=== PATIENT | female | born 1980 | race Caucasian/White ===

== ENCOUNTER → 2019-05-09 02:50 | Observation (INO) ==
[2019-05-09 01:49] LABS: Amphetamine Screen,Urine Negative ng/mL (Cutoff=1000); Barbiturate Screen,Urine Negative ng/mL (Cutoff=200); Benzodiazepines Screen,Urine Negative ng/mL (Cutoff=200); Cannabinoid Screen,Urine Negative ng/mL (Cutoff = 50); Cocaine Screen,Urine Negative ng/mL (Cutoff= 300); Opiate Screen,Urine Negative ng/mL (Cutoff=300); Phencyclidine Screen,Urine Negative ng/mL (Cutoff=25)
== END | disposition home or self-care (01) ==
LOC: 1NENULAB
PROVIDERS: ADMIT Obstetrics & Gynecology; ATTEND Obstetrics & Gynecology

== ENCOUNTER → 2019-07-16 20:39 | Observation (INO) ==
[2019-07-16 20:06] LABS: Bilirubin,Urine Negative (Negative); Blood,Urine Negative (Negative); Clarity,Urine Cloudy (Clear); Color,Urine Yellow (Yellow); Glucose,Urine (UA) Normal (Normal); Ketones,Urine Negative (Negative); Leukocyte Esterase,Urine Large (Negative); Nitrite,Urine Positive (Negative); Protein,Urine Trace mg/dL (Neg-Trace); Specific Gravity,Urine 1.019 (1.010-1.025); Urobilinogen,Urine Normal (Normal)
[2019-07-16 20:08] LABS: Bacteria,Urine Many per hpf (None-Few); Hyaline Casts,Urine Few per lpf (None-Few); RBC,Urine 0-3 per hpf (0-3); Squamous Epithelial Cell,Urine Many per lpf (None-Few); WBC,Urine 50-100 per hpf (0-3)
[2019-07-16 20:17] LABS: Amphetamine Screen,Urine Negative ng/mL (Cutoff=1000); Barbiturate Screen,Urine Negative ng/mL (Cutoff=200); Benzodiazepines Screen,Urine Negative ng/mL (Cutoff=200); Cannabinoid Screen,Urine Negative ng/mL (Cutoff = 50); Cocaine Screen,Urine Negative ng/mL (Cutoff= 300); Opiate Screen,Urine Negative ng/mL (Cutoff=300); Phencyclidine Screen,Urine Negative ng/mL (Cutoff=25)
[~2019-07-16 20:39] MED LIST: NIFEdipine 10 MG CAPSULE PO ONE
== END | disposition home or self-care (01) ==
LOC: 1NENULAB
PROVIDERS: ADMIT Registered Nurse; ATTEND Registered Nurse

== ENCOUNTER 2019-08-16 15:17 | Inpatient (IN) ==
[~2019-08-16 15:17] MED LIST changes: +CeFAZolin 2,000 MG/50 ML BAG IVPB ONE; +Famotidine 20 MG/2 ML VIAL IVP ONE; +Metoclopramide 10 MG/2 ML VIAL IVP ONE; -NIFEdipine 10 MG CAPSULE PO ONE; +Ringers Solution, Lactated 1,000 ML IVC ONE; +Ringers Solution, Lactated 1,000 ML ONE
[2019-08-16] MEDS ORDERED: *HR* Oxytocin 10 UNIT/ML VIAL IM ONE ×2 (15:43→17:21)
[2019-08-16] MEDS ORDERED: *HR* Phenylephrine 10 MG/ML VIAL ONE (15:43)
[2019-08-16] MEDS ORDERED: *HR* Propofol 200 MG/20 ML VIAL IVP ONE (15:46)
[2019-08-16] MEDS ORDERED: *HR* Succinylcholine 200 MG/10 ML VIAL IVP ONE (15:46)
[2019-08-16 15:56] LABS: Amphetamine Screen,Urine Negative ng/mL (Cutoff=1000); Barbiturate Screen,Urine Negative ng/mL (Cutoff=200); Benzodiazepines Screen,Urine Negative ng/mL (Cutoff=200); Cannabinoid Screen,Urine Negative ng/mL (Cutoff = 50); Cocaine Screen,Urine Negative ng/mL (Cutoff= 300); Opiate Screen,Urine Negative ng/mL (Cutoff=300); Phencyclidine Screen,Urine Negative ng/mL (Cutoff=25)
[2019-08-16 15:57] LABS: Basophils % 0.3 %; Eosinophils # 0.1 K/mcL (0.0-0.6); Eosinophils % 0.5 %; Hematocrit 28.1 % (35.3-44.9); Hemoglobin 7.9 g/dL (11.5-15.4); Immature Granulocytes % 1.3 % (0-4); Lymphocytes # 1.6 K/mcL (0.6-4.6); Lymphocytes % 12.4 %; Mean Corpuscular HGB Conc 28.1 g/dL (31.6-35.5); Mean Corpuscular Hemoglobin 17.6 pg (28.0-33.3); Mean Corpuscular Volume 62.6 fL (83.0-100.0); Monocytes # 0.7 K/mcL (0.0-1.3); Monocytes % 5.6 %; Neutrophils # 10.2 K/mcL (1.6-8.9); Nucleated Red Blood Cells 1.1 /100 WBC (0); Platelet Count 186 K/mcL (140-400); Red Blood Count 4.49 M/mcL (3.82-4.97); Red Cell Distribution Width 21.2 % (11.5-14.5); Segmented Neutrophils % 79.9 %; White Blood Count 12.8 K/mcL (4.3-11.1)
[2019-08-16 16:22] LABS: Anisocytosis 1+ (Not Present)
[2019-08-16 16:23] LABS: Hypochromasia Present (Not Present); Macrocytosis Present (Not Present); Platelet Estimate Normal (Normal); Poikilocytosis 1+ (Not Present); Polychromasia 1+ (Not Present)
[2019-08-16 16:24] LABS: Large Platelets Present (Not Present)
[2019-08-16] MEDS ORDERED: 0.9 % Sodium Chloride 1,000 ML ONE (16:33)
[2019-08-16] MEDS ORDERED: EPHEDrine 50 MG/ML VIAL ONE (16:52)
[2019-08-16] MEDS ORDERED: *HR* Morphine Sulfate/PF 10 MG/10 ML AMPUL ONE (16:53)
[2019-08-16] MEDS ORDERED: *HR* FentaNYL (PF) 100 MCG/2 ML VIAL ONE (16:55)
[2019-08-16] MEDS ORDERED: Famotidine 20 MG/2 ML VIAL ONE (16:55)
[2019-08-16] MEDS ORDERED: Metoclopramide 10 MG/2 ML VIAL ONE (16:55)
[2019-08-16] MEDS ORDERED: *HR* HYDROmorphone (PF) 1 MG/ML SYRINGE IVP PRN (17:34)
[2019-08-16] MEDS ORDERED: Acetaminophen IV 1,000 MG/100 ML INFUS..BTL IVPB ONE (17:34)
[2019-08-16] MEDS ORDERED: *HR* Promethazine 25 MG/ML VIAL IVP PRN (17:34)
[2019-08-16] MEDS ORDERED: Ondansetron 4 MG/2 ML VIAL IVP PRN ×2 (17:34→20:52)
[2019-08-16] MEDS ORDERED: Oxytocin 20 units/ LR 1000 mL 20 UNIT/1,000 ML BAG IVC SCH ×2 (20:52)
[2019-08-16] MEDS ORDERED: *HR* OxyCODONE Immed Rel 5 MG TABLET PO PRN (20:52)
[2019-08-16] MEDS ORDERED: Sennosides 8.6 MG TABLET PO PRN (20:52)
[2019-08-16] MEDS ORDERED: Naloxone 0.4 MG/ML INJ IVP PRN (20:52)
[2019-08-16] MEDS ORDERED: Acetaminophen 325 MG TABLET PO PRN (20:52)
[2019-08-16] MEDS ORDERED: Simethicone 80 MG TAB.CHEW PO PRN (20:52)
[2019-08-16] MEDS ORDERED: Measles/Mumps/Rubella Vacc 0.5 ML VIAL SQ ONE (20:52)
[2019-08-16] MEDS ORDERED: Metoclopramide 10 MG/2 ML VIAL IVP PRN (20:52)
[2019-08-16] MEDS: Ibuprofen 600 MG TABLET PO PRN (21:04)
[2019-08-17] MEDS: Ibuprofen 600 MG TABLET PO PRN ×2 (04:19→17:15)
[2019-08-17 06:00] LABS: Hematocrit 25.9 % (35.3-44.9); Hemoglobin 7.3 g/dL (11.5-15.4); Lymphocytes # 1.3 K/mcL (0.6-4.6); Mean Corpuscular HGB Conc 28.2 g/dL (31.6-35.5); Mean Corpuscular Hemoglobin 18.3 pg (28.0-33.3); Mean Corpuscular Volume 65.1 fL (83.0-100.0); Nucleated Red Blood Cells 0.5 /100 WBC (0); Platelet Count 133 K/mcL (140-400); Red Blood Count 3.98 M/mcL (3.82-4.97); Red Cell Distribution Width 22.3 % (11.5-14.5); White Blood Count 12.9 K/mcL (4.3-11.1)
[2019-08-17 06:40] LABS: Monocytes # 0.3 K/mcL (0.0-1.3); Neutrophils # 11.4 K/mcL (1.6-8.9); Platelet Estimate Normal (Normal)
[2019-08-17 06:41] LABS: Anisocytosis 1+ (Not Present); Hypochromasia Present (Not Present); Large Platelets Present (Not Present); Macrocytosis Present (Not Present); Poikilocytosis 1+ (Not Present); Polychromasia 1+ (Not Present)
[2019-08-17] MEDS: *HR* OxyCODONE/APAP 5/325 TABLET PO PRN ×3 (07:08→19:55)
[2019-08-17] MEDS: Prenatal Vit/FA 1 EACH TABLET PO SCH (07:53)
[2019-08-17] MEDS ORDERED: 0.9 % Sodium Chloride 250 ML IVC SCH (08:15)
[2019-08-17] MEDS ORDERED: Iron Sucrose Complex 400 MG in 0.9 % Sodium Chloride 250 ML IVPB ONE (13:00)
[2019-08-17 20:48] LABS: % Iron Saturation 110 % (15-50); Iron 672 mcg/dL (50-170); Transferrin 436 mg/dL (203-362)
[2019-08-17 21:06] LABS: Ferritin 18 ng/mL (10-120)
[2019-08-18] MEDS: *HR* OxyCODONE/APAP 5/325 TABLET PO PRN ×2 (01:08→08:34)
[2019-08-18] MEDS: Ibuprofen 600 MG TABLET PO PRN ×2 (03:55→12:20)
[2019-08-18 05:44] LABS: Basophils % 0.3 %; Hematocrit 27.8 % (35.3-44.9)
[2019-08-18 05:51] LABS: Eosinophils # 0.1 K/mcL (0.0-0.6); Eosinophils % 0.7 %; Hemoglobin 8.2 g/dL (11.5-15.4); Immature Granulocytes % 2.6 % (0-4); Lymphocytes # 1.7 K/mcL (0.6-4.6); Lymphocytes % 11.4 %; Mean Corpuscular HGB Conc 29.5 g/dL (31.6-35.5); Mean Corpuscular Hemoglobin 19.8 pg (28.0-33.3); Mean Corpuscular Volume 67.1 fL (83.0-100.0); Monocytes # 0.9 K/mcL (0.0-1.3); Monocytes % 6.3 %; Neutrophils # 11.4 K/mcL (1.6-8.9); Nucleated Red Blood Cells 0.8 /100 WBC (0); Platelet Count 152 K/mcL (140-400); Red Blood Count 4.14 M/mcL (3.82-4.97); Red Cell Distribution Width 25.1 % (11.5-14.5); Segmented Neutrophils % 78.7 %; White Blood Count 14.5 K/mcL (4.3-11.1)
[2019-08-18 06:16] LABS: Anisocytosis 3+ (Not Present)
[2019-08-18 06:17] LABS: Hypochromasia Present (Not Present); Large Platelets Present (Not Present); Microcytosis Present (Not Present); Platelet Estimate Normal (Normal)
[2019-08-18 07:59] VITALS: BP 125/79
[2019-08-18] MEDS: Prenatal Vit/FA 1 EACH TABLET PO SCH (08:34)
[2019-08-18] MEDS ORDERED: Iron Sucrose Complex 400 MG in 0.9 % Sodium Chloride 250 ML IVPB ONE (13:00)
== END 2019-08-18 16:24 | disposition home or self-care (01) | DRG 783 ==
LOC: 1NENULAB → 1NENUOBS 20:57
PROVIDERS: ADMIT Registered Nurse; ATTEND Registered Nurse